=== PATIENT | male | born 1950 | race Caucasian/White ===

== ENCOUNTER 2021-06-21 15:42 | Inpatient (IN) ==
[2021-06-21] MEDS ORDERED: Acetaminophen 325 MG TABLET PO PRN (20:20)
[2021-06-21] MEDS ORDERED: Naloxone 0.4 MG/ML INJ IVP PRN (20:20)
[2021-06-21] MEDS: 0.9 % Sodium Chloride 1,000 ML IVC SCH (21:42)
[2021-06-21] MEDS ORDERED: Sennosides 8.6 MG TABLET PO PRN (22:24)
[2021-06-22 00:04] LABS: Sodium, Urine 65.2 mEq/L
[2021-06-22 00:19] LABS: Protein/Creatinine Ratio,Urine 4.63 mg/mg (0.00-0.20)
[2021-06-22 03:57] LABS: Basophils % 0.4 %; Eosinophils # 0.1 K/mcL (0.0-0.6); Eosinophils % 1.8 %; Hematocrit 33.9 % (37.5-50.1); Hemoglobin 11.2 g/dL (12.9-16.9); Immature Granulocytes % 1.4 % (0-4); Lymphocytes # 1.2 K/mcL (0.6-4.6); Lymphocytes % 16.5 %; Mean Corpuscular Hemoglobin 26.7 pg (28.0-33.3); Mean Corpuscular Volume 80.9 fL (83.0-100.0); Monocytes # 0.3 K/mcL (0.0-1.3); Monocytes % 4.5 %; Neutrophils # 5.6 K/mcL (1.6-8.9); Platelet Count 310 K/mcL (140-400); Red Blood Count 4.19 M/mcL (4.19-5.50); Red Cell Distribution Width 13.8 % (11.5-14.5); Segmented Neutrophils % 75.4 %; White Blood Count 7.4 K/mcL (4.3-11.1)
[2021-06-22 04:17] LABS: Calcium 7.9 mg/dL (8.6-10.3); Magnesium 2.1 mg/dL (1.6-2.6); Phosphorous 5.5 mg/dL (2.7-4.5); Potassium 4.4 mEq/L (3.5-5.1)
[2021-06-22] MEDS: 0.9 % Sodium Chloride 1,000 ML IVC SCH ×2 (05:31→14:02)
[2021-06-22] MEDS: Aspirin Enteric Coated 81 MG Tablet PO SCH (07:51)
[2021-06-22] MEDS: amLODIPine 5 MG TABLET PO SCH (07:51)
[2021-06-22] MEDS: hydrALAZINE 25 MG TABLET PO SCH ×2 (07:51→20:44)
[2021-06-22] MEDS: Sodium Bicarbonate 75 MEQ in 0.45 % Sodium Chloride 1,000 ML IVC SCH (15:25)
[2021-06-22 15:55] LABS: Bacteria,Urine Few per hpf (None-Few); Bilirubin,Urine Negative (Negative); Blood,Urine Large (Negative); Clarity,Urine Turbid (Clear); Color,Urine Light-Brown (Yellow); Glucose,Urine (UA) Normal (Normal); Ketones,Urine Negative (Negative); Leukocyte Esterase,Urine Trace (Negative); Nitrite,Urine Negative (Negative); Protein,Urine 70 mg/dL (Neg-Trace); RBC,Urine TNTC per hpf (0-3); Urobilinogen,Urine Normal (Normal); WBC,Urine 15-30 per hpf (0-3)
[2021-06-23 05:03] LABS: Basophils % 0.3 %; Eosinophils # 0.2 K/mcL (0.0-0.6); Eosinophils % 2.1 %; Hematocrit 33.1 % (37.5-50.1); Hemoglobin 10.9 g/dL (12.9-16.9); Immature Granulocytes % 1.4 % (0-4); Lymphocytes # 1.3 K/mcL (0.6-4.6); Lymphocytes % 14.6 %; Mean Corpuscular HGB Conc 32.9 g/dL (31.6-35.5); Mean Corpuscular Hemoglobin 26.4 pg (28.0-33.3); Mean Corpuscular Volume 80.1 fL (83.0-100.0); Mean Platelet Volume 9.5 fL (9.4-12.4); Monocytes # 0.4 K/mcL (0.0-1.3); Neutrophils # 7.1 K/mcL (1.6-8.9); Platelet Count 358 K/mcL (140-400); Red Blood Count 4.13 M/mcL (4.19-5.50); Segmented Neutrophils % 77.6 %; White Blood Count 9.2 K/mcL (4.3-11.1)
[2021-06-23] MEDS: Sodium Bicarbonate 75 MEQ in 0.45 % Sodium Chloride 1,000 ML IVC SCH ×2 (05:03→17:44)
[2021-06-23 05:19] LABS: Phosphorous 5.4 mg/dL (2.7-4.5)
[2021-06-23 05:20] LABS: Calcium 7.8 mg/dL (8.6-10.3); Potassium 4.4 mEq/L (3.5-5.1); Uric Acid 9.2 mg/dL (2.3-7.6)
[2021-06-23 05:58] LABS: Hepatitis B Surface Antigen Nonreactive (Nonreactive)
[2021-06-23 06:26] LABS: Hepatitis C Virus Antibody Nonreactive (Nonreactive)
[2021-06-23 06:28] LABS: Hepatitis A Antibody IgM Nonreactive (Nonreactive)
[2021-06-23] MEDS: hydrALAZINE 25 MG TABLET PO SCH ×2 (08:04→20:33)
[2021-06-23] MEDS: Aspirin Enteric Coated 81 MG Tablet PO SCH (08:04)
[2021-06-23] MEDS: amLODIPine 5 MG TABLET PO SCH (08:04)
[2021-06-23 19:45] LABS: Hepatitis B Core IgM Equivocal (Nonreactive)
[2021-06-24 05:37] LABS: Basophils % 0.3 %; Eosinophils # 0.2 K/mcL (0.0-0.6); Hematocrit 29.6 % (37.5-50.1); Hemoglobin 10.1 g/dL (12.9-16.9); Immature Granulocytes % 1.4 % (0-4); Lymphocytes # 1.2 K/mcL (0.6-4.6); Lymphocytes % 13.5 %; Mean Corpuscular HGB Conc 34.1 g/dL (31.6-35.5); Mean Corpuscular Hemoglobin 26.9 pg (28.0-33.3); Mean Corpuscular Volume 78.7 fL (83.0-100.0); Mean Platelet Volume 9.1 fL (9.4-12.4); Monocytes # 0.4 K/mcL (0.0-1.3); Monocytes % 4.3 %; Neutrophils # 7.2 K/mcL (1.6-8.9); Nucleated Red Blood Cells 0.2 /100 WBC (0); Platelet Count 355 K/mcL (140-400); Red Blood Count 3.76 M/mcL (4.19-5.50); Segmented Neutrophils % 78.5 %; White Blood Count 9.1 K/mcL (4.3-11.1)
[2021-06-24 05:56] LABS: Calcium 7.5 mg/dL (8.6-10.3); Potassium 4.4 mEq/L (3.5-5.1)
[2021-06-24] MEDS: amLODIPine 5 MG TABLET PO SCH (08:43)
[2021-06-24] MEDS: Aspirin Enteric Coated 81 MG Tablet PO SCH (08:43)
[2021-06-24] MEDS: hydrALAZINE 25 MG TABLET PO SCH ×2 (08:43→20:56)
[2021-06-24] MEDS: Sodium Bicarbonate 75 MEQ in 0.45 % Sodium Chloride 1,000 ML IVC SCH (09:21)
[2021-06-24 10:58] LABS: ANA IgG by ELISA NONE DETECTED (None Detected)
[2021-06-24] MEDS: Ondansetron 4 MG/2 ML VIAL IVP PRN (23:27)
[2021-06-25] MEDS: Sodium Bicarbonate 75 MEQ in 0.45 % Sodium Chloride 1,000 ML IVC SCH ×2 (01:05→13:58)
[2021-06-25 05:45] LABS: Hematocrit 28.4 % (37.5-50.1); Hemoglobin 9.6 g/dL (12.9-16.9); Mean Corpuscular HGB Conc 33.8 g/dL (31.6-35.5); Mean Corpuscular Hemoglobin 26.4 pg (28.0-33.3); Mean Platelet Volume 9.4 fL (9.4-12.4); Platelet Count 401 K/mcL (140-400); Red Blood Count 3.64 M/mcL (4.19-5.50); White Blood Count 8.7 K/mcL (4.3-11.1)
[2021-06-25 06:04] LABS: Calcium 7.6 mg/dL (8.6-10.3); Potassium 4.4 mEq/L (3.5-5.1)
[2021-06-25] MEDS: amLODIPine 5 MG TABLET PO SCH (08:01)
[2021-06-25] MEDS: hydrALAZINE 25 MG TABLET PO SCH ×2 (08:01→20:04)
[2021-06-25] MEDS: Aspirin Enteric Coated 81 MG Tablet PO SCH (08:01)
[2021-06-26] MEDS: Sodium Bicarbonate 75 MEQ in 0.45 % Sodium Chloride 1,000 ML IVC SCH (04:12)
[2021-06-26 04:49] LABS: Hematocrit 27.1 % (37.5-50.1); Hemoglobin 9.3 g/dL (12.9-16.9); Mean Corpuscular HGB Conc 34.3 g/dL (31.6-35.5); Mean Corpuscular Hemoglobin 27.1 pg (28.0-33.3); Mean Platelet Volume 9.9 fL (9.4-12.4); Platelet Count 450 K/mcL (140-400); Red Blood Count 3.43 M/mcL (4.19-5.50); Red Cell Distribution Width 14.2 % (11.5-14.5); Retculocyte # 0.05 M/mcL (0.05-0.10); Reticulocyte % 1.5 % (1.6-2.8); White Blood Count 9.9 K/mcL (4.3-11.1)
[2021-06-26 05:03] LABS: Complement C3 95 mg/dL (87-200)
[2021-06-26 05:04] LABS: Calcium 7.5 mg/dL (8.6-10.3); Potassium 4.8 mEq/L (3.5-5.1)
[2021-06-26 05:11] LABS: Estimated Average Glucose 137 mg/dl; Hemoglobin A1C 6.4 %
[2021-06-26 05:26] LABS: % Iron Saturation 13 % (20-55); Ferritin 819 ng/mL (20-250); Iron 22 mcg/dL (65-175); Transferrin 125 mg/dL (203-362)
[2021-06-26 05:38] LABS: Folate 7.8 ng/mL (3.0-16.0); Rheumatoid Factor > 120 IU/mL (Less than 14); Vitamin B12 896 pg/mL (250-1100)
[2021-06-26 06:25] LABS: Serine Protease-3 Antibody 680 AU/mL (0-19)
[2021-06-26] MEDS: amLODIPine 5 MG TABLET PO SCH (07:41)
[2021-06-26] MEDS: hydrALAZINE 25 MG TABLET PO SCH ×2 (07:42→21:24)
[2021-06-26] MEDS: Aspirin Enteric Coated 81 MG Tablet PO SCH (07:42)
[2021-06-26] MEDS: Ondansetron 4 MG/2 ML VIAL IVP PRN (07:46)
[2021-06-26 10:41] LABS: C-Reactive Protein 146 mg/L (Less than 10)
[2021-06-26 13:12] LABS: INR 1.3; Prothrombin Time 15.4 Seconds (9.4-12.1)
[2021-06-26 13:14] LABS: Activated Partial Thrombo Time 28.6 Seconds (26.0-36.0)
[2021-06-27] MEDS: Sodium Bicarbonate 75 MEQ in 0.45 % Sodium Chloride 1,000 ML IVC SCH ×3 (00:46→19:53)
[2021-06-27 00:49] LABS: Alpha 2 Globulin (PEP) 1.02 g/dL (0.48-1.05); Beta Globulin (PEP) 0.86 g/dL (0.48-1.10)
[2021-06-27 01:32] LABS: Hemoglobin 8.4 g/dL (12.9-16.9); Mean Corpuscular HGB Conc 33.6 g/dL (31.6-35.5); Mean Corpuscular Hemoglobin 26.6 pg (28.0-33.3); Mean Corpuscular Volume 79.1 fL (83.0-100.0); Mean Platelet Volume 9.4 fL (9.4-12.4); Platelet Count 463 K/mcL (140-400); Red Blood Count 3.16 M/mcL (4.19-5.50); Red Cell Distribution Width 14.1 % (11.5-14.5); White Blood Count 9.9 K/mcL (4.3-11.1)
[2021-06-27 01:53] LABS: Calcium 7.4 mg/dL (8.6-10.3); Potassium 4.1 mEq/L (3.5-5.1)
[2021-06-27] MEDS: amLODIPine 5 MG TABLET PO SCH (07:29)
[2021-06-27] MEDS: hydrALAZINE 25 MG TABLET PO SCH ×2 (07:29→21:23)
[2021-06-27] MEDS: cefTRIAXone 1,000 MG in Water for inj. (sterile) 10 ML IVP SCH (08:55)
[2021-06-27] MEDS ORDERED: Azithromycin 500 MG in 0.9 % Sodium Chloride 250 ML IVPB SCH (09:00)
[2021-06-27 09:37] LABS: Immunoglobulin A 200 mg/dL (68-408); Immunoglobulin G 1308 mg/dL (768-1632); Immunoglobulin M 81 mg/dL (35-263)
[2021-06-27 09:42] LABS: IFE Reflexed IFE Done
[2021-06-27] MEDS ORDERED: *HR* FentaNYL (PF) 100 MCG/2 ML VIAL IVP ONE (09:42)
[2021-06-27] MEDS ORDERED: *HR* Midazolam HCl 5 MG/5 ML VIAL IVP ONE (09:42)
[2021-06-27 10:14] LABS: Adenovirus Not Detected (Not Detect); Bordetella Pertussis Not Detected (Not Detect); Chlamydophila pneumoniae Not Detected (Not Detect); Coronavirus 229E Not Detected (Not Detect); Coronavirus HKU1 Not Detected (Not Detect); Coronavirus NL63 Not Detected (Not Detect); Coronavirus OC43 Not Detected (Not Detect); Human Metapneumovirus Not Detected (Not Detect); Human Rhinovirus/Enterovirus Not Detected (Not Detect); Influenza A Subtype 2009 H1 Not Detected (Not Detect); Influenza B Not Detected (Not Detect); Mycoplasma pneumoniae Not Detected (Not Detect); Parainfluenza Virus 1 Not Detected (Not Detect); Parainfluenza Virus 2 Not Detected (Not Detect); Parainfluenza Virus 3 Not Detected (Not Detect); Parainfluenza Virus 4 Not Detected (Not Detect); Respiratory Syncytial Virus Not Detected (Not Detect); SARS-CoV-2 Not Detected (Not Detect)
[2021-06-27] MEDS ORDERED: 0.9 % Sodium Chloride 500 ML ONE (10:25)
[2021-06-27] MEDS ORDERED: *HR* Midazolam HCl 2 MG/2 ML VIAL IVP ONE ×2 (10:30→10:32)
[2021-06-27] MEDS: Aspirin Enteric Coated 81 MG Tablet PO SCH (12:08)
[2021-06-27] MEDS: Bismuth Subsalicylate 120 ML ORAL SUSPENSION PO PRN (22:47)
[2021-06-28 06:44] LABS: Hematocrit 23.7 % (37.5-50.1); Hemoglobin 7.8 g/dL (12.9-16.9); Mean Corpuscular HGB Conc 32.9 g/dL (31.6-35.5); Mean Corpuscular Hemoglobin 26.4 pg (28.0-33.3); Mean Corpuscular Volume 80.3 fL (83.0-100.0); Mean Platelet Volume 10.1 fL (9.4-12.4); Platelet Count 423 K/mcL (140-400); Red Blood Count 2.95 M/mcL (4.19-5.50); Red Cell Distribution Width 14.3 % (11.5-14.5); White Blood Count 8.7 K/mcL (4.3-11.1)
[2021-06-28 06:54] LABS: Calcium 7.4 mg/dL (8.6-10.3); Magnesium 1.5 mg/dL (1.6-2.6); Phosphorous 6.5 mg/dL (2.7-4.5)
[2021-06-28] MEDS: Aspirin Enteric Coated 81 MG Tablet PO SCH (07:29)
[2021-06-28] MEDS: cefTRIAXone 1,000 MG in Water for inj. (sterile) 10 ML IVP SCH (07:29)
[2021-06-28] MEDS: hydrALAZINE 25 MG TABLET PO SCH ×2 (07:29→20:13)
[2021-06-28] MEDS: amLODIPine 5 MG TABLET PO SCH (07:29)
[2021-06-28] MEDS: Sodium Bicarbonate 75 MEQ in 0.45 % Sodium Chloride 1,000 ML IVC SCH (10:09)
[2021-06-28] MEDS: Melatonin 3 MG TABLET PO PRN (20:13)
[2021-06-29 02:16] LABS: Hemoglobin 6.8 g/dL (12.9-16.9); Mean Corpuscular HGB Conc 32.4 g/dL (31.6-35.5); Mean Corpuscular Hemoglobin 26.2 pg (28.0-33.3); Mean Corpuscular Volume 80.8 fL (83.0-100.0); Mean Platelet Volume 9.7 fL (9.4-12.4); Platelet Count 469 K/mcL (140-400); Red Cell Distribution Width 14.3 % (11.5-14.5); White Blood Count 9.5 K/mcL (4.3-11.1)
[2021-06-29 02:31] LABS: Calcium 7.6 mg/dL (8.6-10.3); Potassium 3.8 mEq/L (3.5-5.1)
[2021-06-29 02:34] LABS: Phosphorous 5.7 mg/dL (2.7-4.5)
[2021-06-29] MEDS: Sodium Bicarbonate 75 MEQ in 0.45 % Sodium Chloride 1,000 ML IVC SCH ×2 (03:32→20:10)
[2021-06-29] MEDS ORDERED: 0.9 % Sodium Chloride 250 ML IVC SCH (07:30)
[2021-06-29] MEDS: amLODIPine 5 MG TABLET PO SCH (08:40)
[2021-06-29] MEDS: Aspirin Enteric Coated 81 MG Tablet PO SCH (08:40)
[2021-06-29] MEDS: hydrALAZINE 25 MG TABLET PO SCH ×2 (08:40→20:10)
[2021-06-29] MEDS: Piperacillin/Tazobactam 3.375 GM in 0.9 % Sodium Chloride Mini Bag 100 ML IVPB SCH ×2 (08:42→20:09)
[2021-06-29] MEDS: methylPREDNISolone 250 MG in 0.9 % Sodium Chloride 50 ML IVPB SCH ×3 (13:15→23:37)
[2021-06-30 00:47] LABS: Hemoglobin 7.8 g/dL (12.9-16.9); Mean Corpuscular HGB Conc 33.9 g/dL (31.6-35.5); Mean Corpuscular Hemoglobin 27.3 pg (28.0-33.3); Mean Corpuscular Volume 80.4 fL (83.0-100.0); Mean Platelet Volume 9.3 fL (9.4-12.4); Platelet Count 451 K/mcL (140-400); Red Blood Count 2.86 M/mcL (4.19-5.50); Red Cell Distribution Width 14.1 % (11.5-14.5); White Blood Count 6.3 K/mcL (4.3-11.1)
[2021-06-30 01:06] LABS: Calcium 7.6 mg/dL (8.6-10.3); Potassium 3.9 mEq/L (3.5-5.1)
[2021-06-30] MEDS: methylPREDNISolone 250 MG in 0.9 % Sodium Chloride 50 ML IVPB SCH ×3 (05:28→18:45)
[2021-06-30] MEDS: Aspirin Enteric Coated 81 MG Tablet PO SCH (08:52)
[2021-06-30] MEDS: Piperacillin/Tazobactam 3.375 GM in 0.9 % Sodium Chloride Mini Bag 100 ML IVPB SCH ×2 (08:52→22:26)
[2021-06-30] MEDS: hydrALAZINE 25 MG TABLET PO SCH ×2 (08:53→22:26)
[2021-06-30] MEDS: amLODIPine 5 MG TABLET PO SCH (08:53)
[2021-06-30] MEDS: Sodium Bicarbonate 75 MEQ in 0.45 % Sodium Chloride 1,000 ML IVC SCH (12:30)
[2021-06-30] MEDS: Bismuth Subsalicylate 120 ML ORAL SUSPENSION PO PRN (18:45)
[2021-06-30] MEDS: Melatonin 3 MG TABLET PO PRN (22:26)
[2021-07-01] MEDS: methylPREDNISolone 250 MG in 0.9 % Sodium Chloride 50 ML IVPB SCH ×4 (01:25→17:13)
[2021-07-01] MEDS: Sodium Bicarbonate 75 MEQ in 0.45 % Sodium Chloride 1,000 ML IVC SCH ×2 (01:25→15:23)
[2021-07-01] MEDS: Bismuth Subsalicylate 120 ML ORAL SUSPENSION PO PRN (01:31)
[2021-07-01 03:34] LABS: Basophils % 0.1 %; Hematocrit 21.7 % (37.5-50.1); Hemoglobin 7.2 g/dL (12.9-16.9); Immature Granulocytes % 0.5 % (0-4); Lymphocytes % 7.2 %; Mean Corpuscular HGB Conc 33.2 g/dL (31.6-35.5); Mean Corpuscular Volume 81.3 fL (83.0-100.0); Mean Platelet Volume 9.5 fL (9.4-12.4); Monocytes # 0.4 K/mcL (0.0-1.3); Neutrophils # 12.8 K/mcL (1.6-8.9); Platelet Count 518 K/mcL (140-400); Red Blood Count 2.67 M/mcL (4.19-5.50); Red Cell Distribution Width 14.3 % (11.5-14.5); Segmented Neutrophils % 89.2 %
[2021-07-01 03:35] LABS: White Blood Count 14.4 K/mcL (4.3-11.1)
[2021-07-01 03:56] LABS: Potassium 3.7 mEq/L (3.5-5.1)
[2021-07-01] MEDS: Piperacillin/Tazobactam 3.375 GM in 0.9 % Sodium Chloride Mini Bag 100 ML IVPB SCH ×2 (08:50→22:20)
[2021-07-01] MEDS: Aspirin Enteric Coated 81 MG Tablet PO SCH (08:50)
[2021-07-01] MEDS: hydrALAZINE 25 MG TABLET PO SCH ×2 (08:50→22:25)
[2021-07-01] MEDS: amLODIPine 5 MG TABLET PO SCH (08:50)
[2021-07-02] MEDS: methylPREDNISolone 250 MG in 0.9 % Sodium Chloride 50 ML IVPB SCH ×2 (01:35→06:11)
[2021-07-02] MEDS: Bismuth Subsalicylate 120 ML ORAL SUSPENSION PO PRN ×2 (02:05→20:03)
[2021-07-02 02:22] LABS: Basophils % 0.1 %; Hematocrit 21.7 % (37.5-50.1); Hemoglobin 7.4 g/dL (12.9-16.9); Immature Granulocytes % 0.6 % (0-4); Lymphocytes # 0.8 K/mcL (0.6-4.6); Lymphocytes % 5.6 %; Mean Corpuscular HGB Conc 34.1 g/dL (31.6-35.5); Mean Corpuscular Hemoglobin 27.9 pg (28.0-33.3); Mean Corpuscular Volume 81.9 fL (83.0-100.0); Mean Platelet Volume 9.4 fL (9.4-12.4); Monocytes # 0.4 K/mcL (0.0-1.3); Monocytes % 3.1 %; Neutrophils # 12.1 K/mcL (1.6-8.9); Platelet Count 521 K/mcL (140-400); Red Blood Count 2.65 M/mcL (4.19-5.50); Red Cell Distribution Width 14.2 % (11.5-14.5); Segmented Neutrophils % 90.6 %; White Blood Count 13.4 K/mcL (4.3-11.1)
[2021-07-02 02:38] LABS: Magnesium 1.9 mg/dL (1.6-2.6); Phosphorous 6.6 mg/dL (2.7-4.5)
[2021-07-02 02:40] LABS: Calcium 7.8 mg/dL (8.6-10.3); Potassium 3.3 mEq/L (3.5-5.1)
[2021-07-02] MEDS: Sodium Bicarbonate 75 MEQ in 0.45 % Sodium Chloride 1,000 ML IVC SCH ×2 (06:07→22:10)
[2021-07-02] MEDS: amLODIPine 5 MG TABLET PO SCH (08:37)
[2021-07-02] MEDS: hydrALAZINE 25 MG TABLET PO SCH ×2 (08:37→20:09)
[2021-07-02] MEDS: Piperacillin/Tazobactam 3.375 GM in 0.9 % Sodium Chloride Mini Bag 100 ML IVPB SCH ×2 (08:38→20:04)
[2021-07-02] MEDS: Aspirin Enteric Coated 81 MG Tablet PO SCH (08:38)
[2021-07-02] MEDS ORDERED: Dextrose Gel 15 GM/37.5 ML TUBE PO PRN ×2 (11:17)
[2021-07-02] MEDS ORDERED: *HR* Dextrose 50 % in Water (Vial) 50 ML VIAL IVP PRN (11:17)
[2021-07-02] MEDS ORDERED: D5% in Water 1,000 ML IVC PRN (11:17)
[2021-07-02] MEDS: Insulin LISPRO 300 UNITS/3 ML VIAL SUBQ SCH ×3 (11:30→20:16)
[2021-07-03 03:17] LABS: Basophils % 0.1 %; Hemoglobin 7.6 g/dL (12.9-16.9); Immature Granulocytes % 0.4 % (0-4); Lymphocytes # 1.1 K/mcL (0.6-4.6); Lymphocytes % 7.4 %; Mean Corpuscular Hemoglobin 27.1 pg (28.0-33.3); Mean Corpuscular Volume 82.1 fL (83.0-100.0); Mean Platelet Volume 9.5 fL (9.4-12.4); Monocytes % 6.7 %; Neutrophils # 12.4 K/mcL (1.6-8.9); Platelet Count 545 K/mcL (140-400); Red Cell Distribution Width 14.2 % (11.5-14.5); Segmented Neutrophils % 85.4 %; White Blood Count 14.5 K/mcL (4.3-11.1)
[2021-07-03 03:32] LABS: Calcium 7.8 mg/dL (8.6-10.3); Potassium 3.5 mEq/L (3.5-5.1)
[2021-07-03 03:33] LABS: Magnesium 1.7 mg/dL (1.6-2.6); Phosphorous 6.2 mg/dL (2.7-4.5)
[2021-07-03] MEDS: Insulin LISPRO 300 UNITS/3 ML VIAL SUBQ SCH ×4 (08:34→21:01)
[2021-07-03] MEDS: Aspirin Enteric Coated 81 MG Tablet PO SCH (08:35)
[2021-07-03] MEDS: Piperacillin/Tazobactam 3.375 GM in 0.9 % Sodium Chloride Mini Bag 100 ML IVPB SCH ×2 (08:35→20:48)
[2021-07-03] MEDS: amLODIPine 5 MG TABLET PO SCH (08:36)
[2021-07-03] MEDS: hydrALAZINE 25 MG TABLET PO SCH ×2 (08:36→20:51)
[2021-07-03 13:47] LABS: Bilirubin,Urine Negative (Negative); Blood,Urine Large (Negative); Clarity,Urine Clear (Clear); Color,Urine Colorless (Yellow); Glucose,Urine (UA) Normal (Normal); Ketones,Urine Negative (Negative); Leukocyte Esterase,Urine Negative (Negative); Mucus,Urine Few per lpf (None-Few); Nitrite,Urine Negative (Negative); PH,Urine 7.5 pH Units (5.0-8.0); Protein,Urine 50 mg/dL (Neg-Trace); RBC,Urine TNTC per hpf (0-3); Urobilinogen,Urine Normal (Normal)
[2021-07-03] MEDS: Sodium Bicarbonate 75 MEQ in 0.45 % Sodium Chloride 1,000 ML IVC SCH (17:37)
[2021-07-03] MEDS: Ondansetron 4 MG/2 ML VIAL IVP PRN (17:41)
[2021-07-03] MEDS: Chlorhexidine Rinse 15 ML MOUTHWASH MM SCH (20:49)
[2021-07-03] MEDS: Lactobacillus 1 EACH CAP.SPRINK PO SCH (20:51)
[2021-07-04 04:29] LABS: Hematocrit 24.3 % (37.5-50.1); Hemoglobin 7.9 g/dL (12.9-16.9); Mean Corpuscular HGB Conc 32.5 g/dL (31.6-35.5); Mean Corpuscular Volume 82.9 fL (83.0-100.0); Mean Platelet Volume 9.8 fL (9.4-12.4); Platelet Count 505 K/mcL (140-400); Red Blood Count 2.93 M/mcL (4.19-5.50); Red Cell Distribution Width 14.6 % (11.5-14.5); White Blood Count 13.4 K/mcL (4.3-11.1)
[2021-07-04 04:43] LABS: Calcium 7.7 mg/dL (8.6-10.3); Magnesium 1.6 mg/dL (1.6-2.6); Phosphorous 6.6 mg/dL (2.7-4.5); Potassium 3.5 mEq/L (3.5-5.1)
[2021-07-04] MEDS: Insulin LISPRO 300 UNITS/3 ML VIAL SUBQ SCH ×4 (08:01→21:21)
[2021-07-04] MEDS: Lactobacillus 1 EACH CAP.SPRINK PO SCH ×2 (10:10→20:40)
[2021-07-04] MEDS: Aspirin Enteric Coated 81 MG Tablet PO SCH (10:10)
[2021-07-04] MEDS: Multivit/Ca/Min/Fe/FA 1 TAB TABLET PO SCH (10:10)
[2021-07-04] MEDS: hydrALAZINE 25 MG TABLET PO SCH ×2 (10:10→20:40)
[2021-07-04] MEDS: Chlorhexidine Rinse 15 ML MOUTHWASH MM SCH ×2 (10:10→20:41)
[2021-07-04] MEDS: amLODIPine 5 MG TABLET PO SCH (10:11)
[2021-07-04] MEDS: Piperacillin/Tazobactam 3.375 GM in 0.9 % Sodium Chloride Mini Bag 100 ML IVPB SCH ×2 (10:11→21:38)
[2021-07-04] MEDS: predniSONE 20 MG TABLET PO SCH (14:38)
[2021-07-04 22:59] LABS: Calcium 7.4 mg/dL (8.6-10.3); Magnesium 1.7 mg/dL (1.6-2.6); Phosphorous 6.7 mg/dL (2.7-4.5); Potassium 3.7 mEq/L (3.5-5.1)
[2021-07-05 05:24] LABS: Hematocrit 21.5 % (37.5-50.1); Hemoglobin 6.9 g/dL (12.9-16.9); Mean Corpuscular HGB Conc 32.1 g/dL (31.6-35.5); Mean Corpuscular Hemoglobin 27.2 pg (28.0-33.3); Mean Corpuscular Volume 84.6 fL (83.0-100.0); Mean Platelet Volume 10.3 fL (9.4-12.4); Platelet Count 417 K/mcL (140-400); Red Blood Count 2.54 M/mcL (4.19-5.50); Red Cell Distribution Width 14.5 % (11.5-14.5); White Blood Count 11.8 K/mcL (4.3-11.1)
[2021-07-05 05:41] LABS: Calcium 7.5 mg/dL (8.6-10.3); Magnesium 1.7 mg/dL (1.6-2.6); Potassium 3.6 mEq/L (3.5-5.1)
[2021-07-05] MEDS: Multivit/Ca/Min/Fe/FA 1 TAB TABLET PO SCH (08:28)
[2021-07-05] MEDS: amLODIPine 5 MG TABLET PO SCH (08:28)
[2021-07-05] MEDS: predniSONE 20 MG TABLET PO SCH (08:28)
[2021-07-05] MEDS: Lactobacillus 1 EACH CAP.SPRINK PO SCH ×2 (08:28→20:11)
[2021-07-05] MEDS: Insulin LISPRO 300 UNITS/3 ML VIAL SUBQ SCH ×4 (08:29→20:54)
[2021-07-05] MEDS: hydrALAZINE 25 MG TABLET PO SCH ×2 (08:29→20:11)
[2021-07-05] MEDS: Piperacillin/Tazobactam 3.375 GM in 0.9 % Sodium Chloride Mini Bag 100 ML IVPB SCH ×2 (08:29→20:20)
[2021-07-05] MEDS: Chlorhexidine Rinse 15 ML MOUTHWASH MM SCH ×2 (08:29→20:11)
[2021-07-05] MEDS: Aspirin Enteric Coated 81 MG Tablet PO SCH (08:29)
[2021-07-05] MEDS ORDERED: Sulfamethoxazole/Trimeth DS 1 EACH TABLET PO SCH (09:00)
[2021-07-05 09:34] LABS: GBM IgG Multiplex Bead Assay 1 AU/mL (0-19); Glomerular Basement Memb IgG NEGATIVE (Negative)
[2021-07-05 09:38] LABS: Hematocrit 23.9 % (37.5-50.1); Hemoglobin 7.6 g/dL (12.9-16.9); Mean Corpuscular HGB Conc 31.8 g/dL (31.6-35.5); Mean Corpuscular Hemoglobin 26.8 pg (28.0-33.3); Mean Corpuscular Volume 84.2 fL (83.0-100.0); Mean Platelet Volume 10.1 fL (9.4-12.4); Platelet Count 477 K/mcL (140-400); Red Blood Count 2.84 M/mcL (4.19-5.50); Red Cell Distribution Width 14.6 % (11.5-14.5); White Blood Count 16.4 K/mcL (4.3-11.1)
[2021-07-05] MEDS: Bismuth Subsalicylate 120 ML ORAL SUSPENSION PO PRN (10:40)
[2021-07-06 02:34] LABS: Hemoglobin 6.5 g/dL (12.9-16.9); Mean Corpuscular HGB Conc 32.5 g/dL (31.6-35.5); Mean Corpuscular Hemoglobin 27.3 pg (28.0-33.3); Mean Platelet Volume 10.4 fL (9.4-12.4); Platelet Count 401 K/mcL (140-400); Red Blood Count 2.38 M/mcL (4.19-5.50); Red Cell Distribution Width 14.6 % (11.5-14.5); White Blood Count 13.9 K/mcL (4.3-11.1)
[2021-07-06 02:55] LABS: Calcium 7.7 mg/dL (8.6-10.3); Magnesium 1.7 mg/dL (1.6-2.6); Phosphorous 6.4 mg/dL (2.7-4.5); Potassium 3.5 mEq/L (3.5-5.1)
[2021-07-06] MEDS ORDERED: 0.9 % Sodium Chloride 250 ML IVC SCH (05:15)
[2021-07-06] MEDS: Insulin LISPRO 300 UNITS/3 ML VIAL SUBQ SCH ×4 (07:24→21:08)
[2021-07-06] MEDS: Piperacillin/Tazobactam 3.375 GM in 0.9 % Sodium Chloride Mini Bag 100 ML IVPB SCH ×2 (08:38→20:28)
[2021-07-06] MEDS: predniSONE 20 MG TABLET PO SCH (08:41)
[2021-07-06] MEDS: Aspirin Enteric Coated 81 MG Tablet PO SCH (08:41)
[2021-07-06] MEDS: Multivit/Ca/Min/Fe/FA 1 TAB TABLET PO SCH (08:41)
[2021-07-06] MEDS: Lactobacillus 1 EACH CAP.SPRINK PO SCH ×2 (08:41→20:28)
[2021-07-06] MEDS: Chlorhexidine Rinse 15 ML MOUTHWASH MM SCH ×2 (08:41→20:27)
[2021-07-06] MEDS: amLODIPine 5 MG TABLET PO SCH (08:41)
[2021-07-06] MEDS: hydrALAZINE 25 MG TABLET PO SCH ×2 (08:41→20:28)
[2021-07-06 13:14] LABS: Hematocrit 24.3 % (37.5-50.1)
[2021-07-06 23:34] VITALS: BP 137/62; PULSE 68; TEMP 97.6; O2SAT 95
[2021-07-07 00:52] LABS: Basophils % 0.1 %; Eosinophils # 0.1 K/mcL (0.0-0.6); Eosinophils % 0.5 %; Hematocrit 21.9 % (37.5-50.1); Hemoglobin 7.3 g/dL (12.9-16.9); Immature Granulocytes % 0.7 % (0-4); Lymphocytes % 9.1 %; Mean Corpuscular HGB Conc 33.3 g/dL (31.6-35.5); Mean Corpuscular Volume 81.1 fL (83.0-100.0); Monocytes # 0.4 K/mcL (0.0-1.3); Monocytes % 4.1 %; Neutrophils # 9.1 K/mcL (1.6-8.9); Platelet Count 364 K/mcL (140-400); Red Cell Distribution Width 15.4 % (11.5-14.5); Segmented Neutrophils % 85.5 %; White Blood Count 10.7 K/mcL (4.3-11.1)
[2021-07-07 01:12] LABS: Albumin 2.3 g/dL (3.5-5.7); Albumin/Globulin Ratio 0.9 (1.1-2.2); Bilirubin,Total 0.9 mg/dL (0.3-1.0); Calcium 7.6 mg/dL (8.6-10.3); Globulin 2.6 g/dL (2.4-3.5); Magnesium 1.7 mg/dL (1.6-2.6); Phosphorous 5.7 mg/dL (2.7-4.5); Potassium 3.5 mEq/L (3.5-5.1); Total Protein 4.9 g/dL (6.4-8.9)
== END 2021-07-07 03:39 | disposition short-term general hospital (02) | DRG 542 ==
LOC: 2ANU → SUATTDRO 17:54
PROVIDERS: ADMIT Internal Medicine; ATTEND Internal Medicine